=== PATIENT | female | born 1975 | race Caucasian/White ===

== ENCOUNTER 2016-09-11 21:41 | Inpatient (IN) | payer OTHER ==
[2016-09-11] MEDS ORDERED: NORMAL SALINE 1000 ML 1,000 ML IV ONE (23:36)
[2016-09-11] MEDS ORDERED: CLINDAMYCIN 600 MG/D5W RTU 50 ML IV ONE (23:36)
[2016-09-11] MEDS ORDERED: VANCOMYCIN HCL INJ 1000 MG VIAL IV ONE (23:37)
[2016-09-11] MEDS ORDERED: HYDROMORPHONE HCL INJ/PF 2 MG/ML AMPULE IV ONE (23:41)
--- NOTE | 2016-09-11 23:48 | ER Document Report ---
ED General - General Chief Complaint: abscess, fever, chills Stated Complaint: RECTUM PAIN,SWELLING,FEVER Notes: Patient is a 40-year-old female presents with complaint of a abscess in the rectum and left gluteal area. Patient says it started on . She started having fevers at that time. She waited and to get worse. Tonight she came to ER. She's never had abscesses in this location before. She says she's had one previous abscess in her axilla. No vomiting. No diarrhea. No other complaints at this time. She's a history of diabetes and hypertension. She takes metformin and glipizide for her diabetes. She takes lisinopril for her hypertension. TRAVEL OUTSIDE OF THE [place] IN LAST 30 DAYS: No - Related Data Allergies/Adverse Reactions: Sulfa (Sulfonamide Antibiotics) Allergy (Verified 09/11/16 22:11) Past Medical History - Social History Smoking Status: Never Smoker Frequency of alcohol use: None Drug Abuse: None Family History: Reviewed & Not Pertinent Renal/ Medical History: Denies: Hx Peritoneal Dialysis Review of Systems - Review of Systems Notes: My Normal Review Basic REVIEW OF SYSTEMS: CONSTITUTIONAL : Fevers RESPIRATORY: Denies cough, cold, or chest congestion. Denies shortness of breath, difficulty breathing, or wheezing. GASTROINTESTINAL: Denies abdominal pain. Denies nausea, vomiting, or diarrhea. Denies constipation. Last BM: GENITOURINARY: Denies difficulty urinating, painful urination, burning, frequency, or blood in urine. FEMALE GENITOURINARY: Denies vaginal bleeding, abnormal or irregular periods. LMP: MUSCULOSKELETAL: Denies neck or back pain or joint pain or swelling. SKIN: Rectal abscess NEUROLOGICAL: Denies altered mental status or loss of consciousness. Denies headache. Denies weakness or paralysis or loss of use of either side. Denies problems with gait or speech. Denies sensory or motor loss. ALL OTHER SYSTEMS REVIEWED AND NEGATIVE. Physical Exam - Vital signs Vitals: Temp Pulse BP Pulse Ox 99.7 F 136 H 186/77 H 98 09/11/16 22:07 09/11/16 22:07 09/11/16 22:07 09/11/16 22:07 - Notes Notes: General Appearance: Well nourished, alert, cooperative, no acute distress, moderate obvious discomfort. Vitals: reviewed, See vital signs table. Head: no swelling or tenderness to the head Eyes: PERRL, EOMI, Conjuctiva clear Mouth: No decreasd moisture Lungs: No wheezing, No rales, No rhonci, No accessory muscle use, good air exchange bilaterally. Heart: Tachycardic rate, Regular rythm, No murmur, no rub Abdomen: Normal BS, soft, No rigidity, No abdominal tenderness, No guarding, no rebound, no abdominal masses, no organomegaly Extremities: strength 5/5 in all extremities, good pulses in all extremities, no swelling or tenderness in the extremities, no edema. Skin: Very large abscess extending from the rectum on the left side up through the left gluteal area. She has cellulitis that extends through approximately half her entire left buttock cheek. No crepitus palpation. Neuro: speech clear, oriented x 3, normal affect, responds appropriately to questions. Course - Re-evaluation Re-evalutation: 09/11/16 23:47 I did speak with the general surgeon, Dr. Edwards. I did inform him of the patient's condition and the large rectal abscess with extension into the gluteal area. I do not see signs of Paulina's. He agrees with the patient. She requests a give the patient antibiotics as well as IV fluids. He said he will evaluate the patient for same morning to take to the OR for definitive treatment. I did talk to the patient about the plan and she is agreeable to it. - Vital Signs Vital signs: Temp Pulse Resp BP Pulse Ox 98.6 F 99 18 143/78 H 94 09/12/16 00:45 09/12/16 00:45 09/12/16 00:45 09/12/16 00:45 09/12/16 00:45 - Laboratory Result Diagrams: 09/12/16 00:08 09/12/16 00:08 Laboratory results interpreted by me: 09/12/16 09/12/16 09/12/16 00:08 00:08 01:02 WBC 21.5 H Hgb 11.5 L Hct 34.2 L MCV 76 L MCH 25.5 L RDW 15.1 H Abs Neuts (Manual) 16.1 H Abs Monocytes (Manual) 1.9 H Carbon Dioxide 20 L Glucose 308 H POC Glucose 262 H Alkaline Phosphatase 155 H - Transfer of Care Notes: 09/12/16 01:32 I did reevaluate the patient. She's feeling much improved after the pain medication. IV antibiotics are infusing. She has a leukocytosis of 21,000. Her blood sugar was 300 and therefore I gave her 5 units of insulin. Patient will be admitted to the surgical floor. Dr. Edwards agrees to evaluate the patient first thing in the morning for possible surgical intervention. Dictation of this chart was performed using voice recognition software; therefore, there may be some unintended grammatical errors. Discharge - Discharge Clinical Impression: Rectal abscess Condition: Stable Disposition: ADMITTED OBSERVATION Admitting Provider: Surgicalist Unit Admitted: OR
[2016-09-12 00:45] LABS: HEMATOCRIT 34.2 % (36.0-47.0); HEMOGLOBIN 11.5 g/dL (12.0-15.5); HGB HCT DIFFERENCE 0.3; MEAN CORPUSCULAR HEMOGLOBIN 25.5 pg (27.0-33.4); MEAN CORPUSCULAR HGB CONC 33.7 g/dL (32.0-36.0); MEAN CORPUSCULAR VOLUME 76 fl (80-97); RED BLOOD COUNT 4.52 10^6/uL (3.72-5.28); RED CELL DISTRIBUTION WIDTH 15.1 % (11.5-14.0); WHITE BLOOD COUNT 21.5 10^3/uL (4.0-10.5)
[2016-09-12 00:53] LABS: ALANINE AMINOTRANSFERASE 36 U/L (9-52); ALBUMIN 3.9 g/dL (3.5-5.0); ALKALINE PHOSPHATASE 155 U/L (38-126); ANION GAP 18 (5-19); ASPARTATE AMINO TRANSFERASE 32 U/L (14-36); BILIRUBIN,DIRECT 0.3 mg/dL (0.0-0.4); BILIRUBIN,TOTAL 0.6 mg/dL (0.2-1.3); BLOOD UREA NITROGEN 11 mg/dL (7-20); CALCIUM 9.5 mg/dL (8.4-10.2); CARBON DIOXIDE 20 mmol/L (22-30); CHLORIDE 100 mmol/L (98-107); CREATININE RESULT 0.56 mg/dL (0.52-1.25); GLUCOSE 308 mg/dL (75-110); POTASSIUM 3.9 mmol/L (3.6-5.0); TOTAL PROTEIN 7.3 g/dL (6.3-8.2)
[2016-09-12] MEDS ORDERED: INSULIN REG, HUMAN 100 UNIT/ML 3 ML VIAL (PYX) SUBCUT ONE ×3 (00:56→07:56)
[2016-09-12 01:25] LABS: BASOPHILS % (MANUAL) 0 % (0-2); EOSINOPHILS % (MANUAL) 0 % (0-6); LYMPHOCYTES % (MANUAL) 16 % (13-45); TOTAL CELLS COUNTED 100
[2016-09-12 01:27] LABS: TOXIC GRANULATION SLIGHT; TOXIC VACUOLATION PRESENT
[2016-09-12 01:28] LABS: ANISOCYTOSIS SLIGHT; HYPOCHROMASIA SLIGHT; MICROCYTOSIS 1+; POLYCHROMASIA SLIGHT
[2016-09-12] MEDS ORDERED: NORMAL SALINE 1000 ML 1,000 ML IV ONE (01:31)
[2016-09-12] MEDS ORDERED: HYDROMORPHONE HCL INJ/PF 2 MG/ML AMPULE IV PRN (01:50)
[2016-09-12] MEDS ORDERED: HYDROMORPHONE HCL INJ/PF 2 MG/ML AMPULE IV ONE (03:17)
[2016-09-12] MEDS ORDERED: BUPIVACAINE HCL 0.25 % INJ/PF (2.5 MG/1 ML) 30 ML VIAL ONE (05:53)
[2016-09-12] MEDS ORDERED: DEXAMETHASONE SOD PHOSPHATE INJ 4 MG/1 ML VIAL ONE (06:04)
[2016-09-12] MEDS ORDERED: FENTANYL CITRATE INJ/PF 100 MCG/2 ML AMPUL ONE (06:04)
[2016-09-12] MEDS ORDERED: MIDAZOLAM 2 MG/2 ML INJ ONE (06:04)
[2016-09-12] MEDS ORDERED: ONDANSETRON HCL INJ/PF 4 MG/2 ML SDV ONE (06:05)
[2016-09-12] MEDS ORDERED: PROPOFOL INJ 200 MG/20 ML VIAL IV ONE (06:05)
[2016-09-12] MEDS ORDERED: MORPHINE SULFATE 10 MG/ML INJ ONE (06:49)
--- NOTE | 2016-09-12 07:06 | Operative Report ---
Operative Report DATE OF SURGERY: 09/12/16 PREOPERATIVE DIAGNOSIS: Left maty-rectal abscess POSTOPERATIVE DIAGNOSIS: Same OPERATION: 1. Exam under anesthesia. 2. Anoscopy. 3. Excisional debridement and drainage of left anterior lateral perirectal abscess SURGEON: THIERNO CARVALHO ANESTHESIA: LMAC TISSUE REMOVED OR ALTERED: pus COMPLICATIONS: None ESTIMATED BLOOD LOSS: scant INTRAOPERATIVE FINDINGS: See below PROCEDURE: The patient was taken from the preoperative holding area and the main operating room where general anesthesia was induced. The patient was then placed in the prone jackknife position, buttocks spread. Appropriate attention to arm and leg positioning was undertaken. A subsequent surgical timeout conducted. An N Jhonatan Marroquin was prepped in sterile fashion. An anterolateral medial incision was made with a #10 blade. Approximately 100 mL of pus was evacuated from the cutaneous tissue. We debrided skin subcutaneous tissue and broke up all the loculations extending from the anterior 12 o'clock position, with extension down to the peritoneum and then laterally and posterolaterally to the 5:30 position. The infection appeared to be contained to the subcutaneous tissue. The anal canal was examined. There were internal hemorrhoids, collapsed. Dilated the anal canal to admit to adult fingers, and the bullet anoscope was inserted. Limited evaluation of the revealed no evidence of apparent communication between the cavity and the anal canal. No further probing was undertaken. Therefore a fistula in ano could not be confirmed. We irrigated out the debrided abscess cavity, packed with iodoform soaked Curlex. 4 x 4's and tape applied; patient tolerated the this procedure well and extubated and taken to recovery room in stable condition.
--- NOTE | 2016-09-12 07:31 | PDOC H&P ---
History of Present Illness Admission Date/PCP: 09/12/16 05:54 RYANN AHN PA-C History of Present Illness: ALANA AZEVEDO is a 40 year old female in the emergency department complaining of left perirectal pain, swelling, difficulty moving her bowels . She was seen in the emergency department where she was found to have a large maty Rectal abscess. Surgery was consulted, she was advised admission, definitive management. She denies previous episodes of infection in her perianal rectal area; she has had a abscess drained from her arm. Past Medical History Cardiac Medical History: Reports: Hypertension Endocrine Medical History: Reports: Diabetes Mellitus Type 2 Social History Smoking Status: Never Smoker Frequency of Alcohol Use: None Hx Recreational Drug Use: No Drugs: None Hx Prescription Drug Abuse: No - Advance Directive Resuscitation Status: Full Code Family History Family History: Reviewed & Not Pertinent Parental Family History Reviewed: Yes Children Family History Reviewed: Yes Sibling(s) Family History Reviewed.: Yes Medication/Allergy Home Medications: Lisinopril 20 Q1 09/12/16 Metformin HCl 500 mg PO Q1 09/12/16 Allergies/Adverse Reactions: Sulfa (Sulfonamide Antibiotics) Allergy (Verified 09/11/16 22:11) Review of Systems Constitutional: PRESENT: fever(s) Ears: ABSENT: hearing changes Cardiovascular: ABSENT: chest pain, dyspnea on exertion, edema, orthropnea, palpitations Respiratory: ABSENT: cough, hemoptysis Psychiatric: ABSENT: anxiety, depression, homidical ideation, suicidal ideation Endocrine: PRESENT: other - Blood sugars have been elevated.. ABSENT: cold intolerance, heat intolerance, polydipsia, polyuria Physical Exam Vital Signs: Temp Pulse Resp BP Pulse Ox 98.9 F 109 H 18 122/54 L 100 09/12/16 05:44 09/12/16 05:44 09/12/16 05:44 09/12/16 05:44 09/12/16 05:44 Intake & Output 09/11/16 09/12/16 09/13/16 06:59 06:59 06:59 Output Total 250 Balance -250 Weight 129.7 kg General appearance: PRESENT: mild distress Eye exam: PRESENT: EOMI Mouth exam: PRESENT: dry mucosa Neck exam: PRESENT: full ROM Cardiovascular exam: PRESENT: RRR Pulses: PRESENT: normal radial pulses Rectal exam: PRESENT: other - Large left anterior lateral inflammatory mass with tight skin and erythematous changes Assessment & Plan - Diagnosis (1) Rectal abscess Is this a current diagnosis for this admission?: YesPlan: 1. Admit to surgical service, IV fluids, operative debridement 2. Intravenous antibiotics. 3. Consult hospitalist for assistance with management of diabetes - Time Time Spent: 30 to 50 Minutes Critical Time spent with patient: Less than 15 minutes - Inpatient Certification Based on my medical assessment, after consideration of the patient's comorbidities, presenting symptoms, or acuity I expect that the services needed warrant INPATIENT care.: Yes I certify that my determination is in accordance with my understanding of Medicare's requirements for reasonable and necessary INPATIENT services [42 CFR 412.3e].: Yes Medical Necessity: Need For IV Fluids, Need for Pain Control, Need for IV Antibiotics, Need for Surgery
[2016-09-12] MEDS ORDERED: MORPHINE SULFATE 10 MG/ML INJ IV PRN ×2 (07:32→07:37)
[2016-09-12] MEDS ORDERED: PROMETHAZINE HCL INJ 25 MG/1 ML VIAL IV PRN (07:37)
[2016-09-12] MEDS ORDERED: FENTANYL CITRATE INJ/PF 100 MCG/2 ML AMPUL IV PRN ×3 (07:37)
[2016-09-12] MEDS ORDERED: DIPHENHYDRAMINE HCL 50 MG/ML VIAL IV PRN (07:37)
[2016-09-12] MEDS ORDERED: MEPERIDINE HCL/PF INJ 25 MG/1 ML DISP.SYRIN IV PRN (07:37)
[2016-09-12] MEDS ORDERED: LABETALOL HCL INJ 20 MG/4 ML DISP.SYRIN IV PRN (07:37)
[2016-09-12] MEDS ORDERED: DEXTROSE 50%-WATER 25 GM/50 ML DISP.SYRIN IV PRN ×2 (07:47)
[2016-09-12] MEDS ORDERED: GLUCAGON,HUMAN RECOMB 1 MG INJ IM PRN (07:47)
[2016-09-12] MEDS ORDERED: DEXTROSE 40% GEL 15 GM TUBE PO PRN ×2 (07:47)
[2016-09-12] MEDS ORDERED: SUCCINYLCHOLINE CHLORIDE INJ 200 MG/10 ML VIAL ONE (07:47)
[2016-09-12] MEDS ORDERED: INSULIN REG, HUMAN 100 UNIT/ML 3 ML VIAL (PYX) ONE (07:57)
--- NOTE | 2016-09-12 08:40 | PDOC CONSULTATION ---
Consultation Consult Date: 09/12/16 Attending physician:: THIERNO CARVALHO Consult reason:: Management of diabetes History of Present Illness Admission Date/PCP: 09/12/16 05:54 RYANN AHN PA-C Patient complains of: Rectal pain History of Present Illness: ALANA AZEVEDO is a 40 year old female in the emergency department complaining of left perirectal pain, swelling, difficulty moving her bowels . She was seen in the emergency department where she was found to have a large maty Rectal abscess. Surgery was consulted, she was advised admission, definitive management. She denies previous episodes of infection in her perianal rectal area; she has had a abscess drained from her arm. Patient was brought to the operating room and drainage was done on the perirectal abscess. Patient's blood sugar noted to be uncontrolled but her anion gap was normal. Consultation was made for diabetes management.. Current blood sugar is 304. Patient reports that she had good control in the past and her last hemoglobin A1c was 6 about 4 months ago. Patient reports recent weight gain however. Past Medical History Past Medical History: Medication reconciliation pending verification from the patient's pharmacist. Cardiac Medical History: Reports: Hypertension Endocrine Medical History: Reports: Diabetes Mellitus Type 2 Psychiatric Medical History: Reports: General Anxiety Disorder Past Surgical History Past Surgical History: Reports: Other - No prior operations other than procedure done today Social History Information Source: Patient Smoking Status: Never Smoker Frequency of Alcohol Use: None Hx Recreational Drug Use: No Drugs: None Hx Prescription Drug Abuse: No - Advance Directive Resuscitation Status: Full Code Family History Family History: DM, Hypertension Parental Family History Reviewed: Yes Children Family History Reviewed: Yes Sibling(s) Family History Reviewed.: Yes Medication/Allergy Allergies/Adverse Reactions: Sulfa (Sulfonamide Antibiotics) Allergy (Verified 09/11/16 22:11) Review of Systems Constitutional: PRESENT: weight gain - Unquantified. ABSENT: chills, fever(s), headache(s), weight loss Eyes: ABSENT: visual disturbances Ears: ABSENT: hearing changes Nose, Mouth, and Throat: ABSENT: mouth pain, sore throat Cardiovascular: ABSENT: chest pain, dyspnea on exertion, edema, orthropnea, palpitations Respiratory: ABSENT: cough, hemoptysis Gastrointestinal: PRESENT: constipation. ABSENT: abdominal pain, diarrhea, hematemesis, hematochezia, melena, nausea, vomiting Genitourinary: ABSENT: difficulty urinating, dysuria, hematuria Musculoskeletal: ABSENT: joint swelling Integumentary: ABSENT: pruritus, rash, wounds Neurological: ABSENT: abnormal gait, abnormal speech, confusion, dizziness, focal weakness, syncope Psychiatric: PRESENT: anxiety, depression. ABSENT: homidical ideation, suicidal ideation Endocrine: ABSENT: cold intolerance, heat intolerance, polydipsia, polyuria Hematologic/Lymphatic: ABSENT: easy bleeding, easy bruising Physical Exam Vital Signs: Temp Pulse Resp BP Pulse Ox 98.9 F 109 H 18 122/54 L 100 09/12/16 05:44 09/12/16 05:44 09/12/16 05:44 09/12/16 05:44 09/12/16 05:44 Intake & Output 09/11/16 09/12/16 09/13/16 06:59 06:59 06:59 Intake Total 1200 Output Total 1200 Balance 0 Weight 129.7 kg General appearance: PRESENT: no acute distress, morbidly obese Head exam: PRESENT: atraumatic, normocephalic Eye exam: PRESENT: conjunctiva pink, EOMI, PERRLA. ABSENT: scleral icterus Ear exam: PRESENT: normal external ear exam Mouth exam: PRESENT: moist, neck supple, tongue midline Neck exam: ABSENT: carotid bruit, JVD, lymphadenopathy, thyromegaly Respiratory exam: PRESENT: clear to auscultation bennett. ABSENT: rales, rhonchi, wheezes Cardiovascular exam: PRESENT: RRR, +S1, +S2, systolic murmur - 2/6 on the left sternal border. ABSENT: diastolic murmur, rubs Pulses: PRESENT: normal dorsalis pedis pul Vascular exam: PRESENT: normal capillary refill GI/Abdominal exam: PRESENT: hypoactive bowel sounds, soft. ABSENT: distended, guarding, mass, organolmegaly, rebound, tenderness Rectal exam: PRESENT: deferred Extremities exam: PRESENT: full ROM. ABSENT: calf tenderness, clubbing, pedal edema Neurological exam: PRESENT: alert, awake, oriented to person, oriented to place , oriented to time, oriented to situation Psychiatric exam: PRESENT: appropriate affect, normal mood. ABSENT: homicidal ideation, suicidal ideation Skin exam: PRESENT: dry, intact, warm. ABSENT: cyanosis, rash Assessment & Plan - Diagnosis (1) Rectal abscess Is this a current diagnosis for this admission?: Yes (2) Diabetes mellitus type 2 in obese Is this a current diagnosis for this admission?: Yes (3) Essential hypertension Is this a current diagnosis for this admission?: Yes (4) Anxiety and depression Is this a current diagnosis for this admission?: Yes - Time Time Spent: 30 to 50 Minutes - Plan Summary Plan Summary: We will restart the patient's glipizide at 5 mg daily when diet resumes. Put the patient on sliding scale insulin. Monitor blood sugar, check hemoglobin A1c and fasting lipid panel. Monitor BP. Thank you so much for this consultation. We will follow the patient w/ you.
[2016-09-12] MEDS: DOCUSATE SODIUM 100 MG CAPSULE PO SCH (09:21)
[2016-09-12] MEDS: GLIPIZIDE XL 5 MG TAB.ER.24 PO SCH (09:21)
[2016-09-12 11:31] LABS: CHOLESTEROL 178.13 mg/dL (0-200); Direct HDL 30 mg/dL (>40); TRIGLYCERIDES 159 mg/dL (<150)
[2016-09-12 11:42] LABS: DIRECT LDL 121 mg/dL (<100)
[2016-09-12 11:43] LABS: VLDL CHOLESTEROL 31.8 mg/dL (10-31)
[2016-09-12] MEDS: INSULIN REG, HUMAN 100 UNIT/ML 3 ML VIAL (PYX) SUBCUT PRN ×2 (11:49→17:54)
[2016-09-12] MEDS: HYDROMORPHONE HCL INJ/PF 2 MG/ML AMPULE IV PRN (22:30)
[2016-09-13] MEDS: INSULIN REG, HUMAN 100 UNIT/ML 3 ML VIAL (PYX) SUBCUT PRN ×4 (08:48→21:33)
[2016-09-13] MEDS: GLIPIZIDE XL 5 MG TAB.ER.24 PO SCH ×2 (08:49→17:31)
--- NOTE | 2016-09-13 08:55 | PDOC PROGRESS REPORT ---
Subjective Progress Note for:: 09/13/16 Subjective:: Patient improved. Rectal pain is better. No chills or fever. Patient denies any nausea or vomiting. Tolerating oral intake well. Her blood sugars improved as well. Patient denies any orthostatic changes nor symptoms, denies numbness and tingling sensation on the fingers and toes. Physical Exam Vital Signs: Temp Pulse Resp BP Pulse Ox 98.8 F 84 19 100/56 L 99 09/12/16 23:16 09/12/16 23:16 09/12/16 23:16 09/12/16 23:16 09/12/16 23:16 Intake & Output 09/12/16 09/13/16 09/14/16 06:59 06:59 06:59 Intake Total 1200 2440 Output Total 1200 2420 Balance 0 20 Weight 129.7 kg 130.8 kg General appearance: PRESENT: no acute distress, cooperative, obese Head exam: PRESENT: normocephalic Eye exam: PRESENT: EOMI Mouth exam: PRESENT: moist, neck supple Neck exam: ABSENT: JVD Respiratory exam: PRESENT: clear to auscultation bennett. ABSENT: rhonchi, wheezes Cardiovascular exam: PRESENT: RRR. ABSENT: gallop GI/Abdominal exam: PRESENT: normal bowel sounds, soft. ABSENT: distended - Obese Extremities exam: PRESENT: other - Trace pretibial edema Neurological exam: PRESENT: alert, awake, oriented to situation Skin exam: PRESENT: dry, warm. ABSENT: cyanosis Results Laboratory Results: 09/12/16 09:42 Triglycerides 159 H Cholesterol 178.13 LDL Cholesterol Direct 121 H VLDL Cholesterol 31.8 H HDL Cholesterol 30 L Assessment & Plan - Diagnosis (1) Rectal abscess Is this a current diagnosis for this admission?: Yes (2) Diabetes mellitus type 2 in obese Is this a current diagnosis for this admission?: Yes (3) Essential hypertension Is this a current diagnosis for this admission?: Yes (4) Anxiety and depression Is this a current diagnosis for this admission?: Yes - Time Time Spent with patient: 25-34 minutes - Plan Summary Plan Summary: Resumed her metformin. Resumed lisinopril as well. We will increase the glipizide and continue to monitor blood sugar. Begin [facility]. We will continue to follow.
[2016-09-13] MEDS: LISINOPRIL 10 MG TABLET PO SCH (09:25)
[2016-09-13] MEDS: DOCUSATE SODIUM 100 MG CAPSULE PO SCH (09:29)
[2016-09-13] MEDS: FENOFIBRATE NANOCRYSTALLIZED 145 MG TABLET PO SCH (09:29)
[2016-09-13] MEDS: METFORMIN HCL 500 MG TABLET PO SCH ×2 (09:29→17:31)
[2016-09-13] MEDS ORDERED: (PENDING PHARMACY ID) (Lisinopril [Prinivil] 20 MG) PO SCH (10:00)
[2016-09-13] MEDS: OXYCODONE-ACETAMINOPHEN 5-325 MG TABLET PO PRN ×2 (13:32→21:21)
[2016-09-13] MEDS ORDERED: ERTAPENEM SODIUM INJ 1 GM VIAL IV SCH (16:15)
[2016-09-13 17:09] LABS: ABSOLUTE BASOPHILS # (AUTO) 0.1 10^3/uL (0.0-0.2); ABSOLUTE EOSINOPHILS # (AUTO) 0.1 10^3/uL (0.0-0.6); ABSOLUTE LYMPHOCYTES (AUTO) 2.5 10^3/uL (0.5-4.7); ABSOLUTE MONOCYTES (AUTO) 0.9 10^3/uL (0.1-1.4); ABSOLUTE NEUT (AUTO) 12.3 10^3/uL (1.7-8.2); BASOPHILS % (AUTO) 0.5 % (0-2); EOSINOPHILS % (AUTO) 0.8 % (0-6); HEMATOCRIT 29.6 % (36.0-47.0); HGB HCT DIFFERENCE 0.4; LYMPHOCYTES % (AUTO) 15.4 % (13-45); MEAN CORPUSCULAR HEMOGLOBIN 25.5 pg (27.0-33.4); MEAN CORPUSCULAR HGB CONC 33.9 g/dL (32.0-36.0); MEAN CORPUSCULAR VOLUME 75 fl (80-97); MONOCYTES % (AUTO) 5.8 % (3-13); RED BLOOD COUNT 3.93 10^6/uL (3.72-5.28); RED CELL DISTRIBUTION WIDTH 14.9 % (11.5-14.0); SEGMENTED NEUTROPHILS % (AUTO) 77.5 % (42-78); WHITE BLOOD COUNT 15.9 10^3/uL (4.0-10.5)
[2016-09-13] MEDS ORDERED: ERTAPENEM SODIUM 1 GM in NORMAL SALINE 50 ML IV ONE (18:00)
--- NOTE | 2016-09-13 23:03 | PROGRESS NOTE E ---
Progress Note NAME: ALANA AZEVEDO : 1975 AGE: 40Y DATE: 09/13/2016 ROOM: 426 The patient had I and D of perirectal abscess done by Dr. Edwards 09/12/2016. Today, she had a small amount of bleeding from the packing, and this was reinforced by the nurses. Her white count is still elevated to 15.9 although lower than the 21.5 yesterday. She still has a considerable amount of pain. PLAN: 1. We will continue her on IV antibiotics. 2. Pain medications including parenteral. 3. We will remove the packing in the a.m. and then discharge her to be followed up in Dr. Edwards' office. 4. I will continue her on p.o. antibiotics for the next 5-7 days. DICTATING PHYSICIAN: FRANCHESCA ROBISON M.D. [id number] PHY#: [id number] ID: [id number] JOB#: [id number] ACCT: [id number] cc: >
[2016-09-14 07:05] LABS: HEMATOCRIT 27.8 % (36.0-47.0); HEMOGLOBIN 9.7 g/dL (12.0-15.5); HGB HCT DIFFERENCE 1.3; MEAN CORPUSCULAR HEMOGLOBIN 25.9 pg (27.0-33.4); MEAN CORPUSCULAR HGB CONC 34.7 g/dL (32.0-36.0); MEAN CORPUSCULAR VOLUME 75 fl (80-97); RED BLOOD COUNT 3.73 10^6/uL (3.72-5.28)
[2016-09-14] MEDS: FENOFIBRATE NANOCRYSTALLIZED 145 MG TABLET PO SCH (09:15)
[2016-09-14] MEDS: DOCUSATE SODIUM 100 MG CAPSULE PO SCH (09:19)
[2016-09-14] MEDS: OXYCODONE-ACETAMINOPHEN 5-325 MG TABLET PO PRN (09:21)
[2016-09-14] MEDS: GLIPIZIDE XL 5 MG TAB.ER.24 PO SCH (09:22)
[2016-09-14] MEDS: METFORMIN HCL 500 MG TABLET PO SCH (09:22)
[2016-09-14] MEDS: LISINOPRIL 10 MG TABLET PO SCH (09:59)
[2016-09-14] MEDS ORDERED: ERTAPENEM SODIUM 1 GM in NORMAL SALINE 50 ML IV SCH (10:00)
[2016-09-14] MEDS: HYDROMORPHONE HCL INJ/PF 2 MG/ML AMPULE IV PRN (10:02)
--- NOTE | 2016-09-14 10:33 | PDOC PROGRESS REPORT ---
Subjective Progress Note for:: 09/14/16 Subjective:: Patient overall is better although rectal pain still present. No chills or fever. No diarrhea. No nausea or vomiting. No abdominal pain. Tolerating oral intake well. Physical Exam Vital Signs: Temp Pulse Resp BP Pulse Ox 98.8 F 82 16 118/69 100 09/14/16 08:15 09/14/16 08:15 09/14/16 08:15 09/14/16 08:15 09/14/16 08:15 Intake & Output 09/13/16 09/14/16 09/15/16 06:59 06:59 06:59 Intake Total 2440 2740 Output Total 2420 900 Balance 20 1840 Weight 130.8 kg 132.1 kg General appearance: PRESENT: no acute distress, cooperative, obese Head exam: PRESENT: normocephalic Eye exam: PRESENT: EOMI Mouth exam: PRESENT: moist, neck supple Neck exam: ABSENT: JVD Respiratory exam: PRESENT: clear to auscultation bennett Cardiovascular exam: PRESENT: RRR. ABSENT: gallop GI/Abdominal exam: PRESENT: normal bowel sounds, soft. ABSENT: tenderness Extremities exam: ABSENT: pedal edema Neurological exam: PRESENT: alert, awake, oriented to person, oriented to place , oriented to time, oriented to situation Skin exam: PRESENT: dry, warm. ABSENT: cyanosis Results Laboratory Results: 09/14/16 06:20 09/13/16 09/14/16 16:41 06:20 WBC 15.9 H 10.0 RBC 3.93 3.73 Hgb 10.0 L 9.7 L Hct 29.6 L 27.8 L MCV 75 L 75 L MCH 25.5 L 25.9 L MCHC 33.9 34.7 RDW 14.9 H 15.0 H Plt Count 267 252 Seg Neutrophils % 77.5 Lymphocytes % 15.4 Monocytes % 5.8 Eosinophils % 0.8 Basophils % 0.5 Absolute Neutrophils 12.3 H Absolute Lymphocytes 2.5 Absolute Monocytes 0.9 Absolute Eosinophils 0.1 Absolute Basophils 0.1 Assessment & Plan - Diagnosis (1) Rectal abscess Is this a current diagnosis for this admission?: Yes (2) Diabetes mellitus type 2 in obese Is this a current diagnosis for this admission?: Yes (3) Essential hypertension Is this a current diagnosis for this admission?: Yes (4) Anxiety and depression Is this a current diagnosis for this admission?: Yes - Time Time Spent with patient: Less than 15 minutes - Plan Summary Plan Summary: Patient's WBC is now normal. Patient is being planned for discharge by surgical service. Would recommend to continue current glipizide 5 mg twice a day, continue metformin as before, monitor blood sugars 3 times a day and record bring to next physician visit. Begin [facility] outpatient. We will sign off from the case. Please call us as needed. Thank you so much for letting us participate in her care.
[2016-09-14] MEDS ORDERED: ONDANSETRON HCL INJ/PF 4 MG/2 ML SDV IV PRN (13:25)
[2016-09-14 15:18] VITALS: BP 116/63
--- NOTE | 2016-09-14 22:48 | DISCHARGE SUMMARY E ---
Discharge Summary NAME: ALANA AZEVEDO : 1975 AGE: 40Y ADMITTED: 09/12/2016 DISCHARGED: 09/14/2016 FINAL DIAGNOSIS: Perirectal abscess. SUMMARY: This is a 40-year-old female who developed pains in the right perirectal area. Incision and drainage was done by Dr. Edwards on 09/12/16. Dr. Edwards did not see any connection to the rectal area, therefore, unable to call this a fistula. At any rate, the drain was removed today and the I and D site looks dry. Small quarter-inch Iodoform gauze was used to repack the wound. Her white count is normal, and her pains have practically subsided. She will be followed up in the office with Dr. Edwards tomorrow, , or Monday. She was asked to remove the packing and shower in the morning. She can place the warm showerhead close to the rectal area for at least 2 minutes to clean the area and hopefully decrease the inflammation and then a small packing can be placed. A prescription for Percocet was given because she complained of some pains on placement of the packing. DICTATING PHYSICIAN: FRANCHESCA ROBISON M.D. [id number] PHY#: [id number] ID: [id number] JOB#: [id number] ACCT: [id number] cc:FRANCHESCA ROBISON M.D. [facility] >
== END 2016-09-14 16:40 | disposition home or self-care (01) | DRG 357 ==
LOC: ER 21:41 → INTOOBSV 09-12 02:19 → UNDOADMOB 09-12 02:19 → OBSVTOIN 09-12 02:19 → EH 09-12 02:19 → 4S 09-12 04:00 → EH 09-12 05:54 → OBSVTOIN 09-12 05:54
PROVIDERS: ATTEND Surgery
PROC: 0DJD8ZZ Inspection of Lower Intestinal Tract, Via Natural or Artificial Opening Endoscopic (ICD-10-PCS; 2016-09-12)
PROC: 0JBB0ZZ Excision of Perineum Subcutaneous Tissue and Fascia, Open Approach (ICD-10-PCS; principal; 2016-09-12 06:00)
DX: K61.1 Rectal abscess (principal); Z68.43 Body mass index [BMI] 50.0-59.9, adult; I10 Essential (primary) hypertension; E11.65 Type 2 diabetes mellitus with hyperglycemia; F41.1 Generalized anxiety disorder; F32.9 Major depressive disorder, single episode, unspecified; E66.9 Obesity, unspecified; K64.8 Other hemorrhoids; Z83.3 Family history of diabetes mellitus; Z88.2 Allergy status to sulfonamides; Z79.84 Long term (current) use of oral hypoglycemic drugs; Z79.899 Other long term (current) drug therapy
CPT/HCPCS: 36415; 80053; 80061; 82962; 83036; 84703; 85025; 85027; 87040; 902; 96365; 96368; 96375; 99284; J0330; J1100; J1170; J1335; J1815; J2250; J2270; J2405; J2704; J3010; J3370; J7030